=== PATIENT | male | born 1935 | race Caucasian/White ===

== ENCOUNTER 2016-11-09 08:07 | Day surgery (SDC) | payer OTHER, BC ==
[2016-11-09 08:39] VITALS: BMI 20.9
[2016-11-09] MEDS ORDERED: PROPOFOL 20 ML ONE (09:38)
[2016-11-09 10:13] VITALS: TEMP 97.4
[2016-11-09 10:36] VITALS: PULSE 58
[2016-11-09 13:12] VITALS: BP 134/70
--- NOTE | 2016-11-10 12:20 | PATH ---
Surgical Pathology Report Patient Name: CONCHIS HOWARD [facility]. Rec. #: [id number] /Age/Gender: 1935 (Age: 81) / M Account: [id number] Location: U-ENDOSCOPY Taken: 11/09/2016 Received: 11/09/2016 Reported: 11/10/2016 Physicians: Juan M Blancas D.O. Specimen(s) Received A: BX DUODENUM/LYMPHOGASTRIC B: BX BODY OF STOMACH C: BX ANTRUM & BODY D: BX GE JUNCTION Clinical History Weight loss, reflux Gastric erosions, hiatal hernia, gastritis Final Diagnosis A. DUODENUM, BIOPSY: DUODENAL MUCOSA WITH NO PATHOLOGIC CHANGES. NO HISTOLOGIC EVIDENCE OF GLUTEN SENSITIVE ENTEROPATHY (CELIAC SPRUE) IDENTIFIED. NO DEFINITE LYMPHANGIECTASIA IDENTIFIED. B. STOMACH, BODY, BIOPSY: HYPERPLASTIC FUNDIC GLAND POLYP. IMMUNOSTAIN FOR H. PYLORI IS NEGATIVE. C. STOMACH, ANTRUM AND BODY, BIOPSY: GASTRIC ANTRAL AND FUNDIC MUCOSA WITH NO DEFINITE PATHOLOGIC CHANGES. IMMUNOSTAIN FOR H. PYLORI IS NEGATIVE. D. 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 NO DYSPLASIA IDENTIFIED. Electronically Signed Kimani Mariano M.D. Gross Description A. Received in formalin, labeled "biopsy duodenum" are 2 de dios, irregular portions of soft tissue averaging 0.2 cm. in greatest dimension. The specimens are submitted in toto in one cassette. B. Received in formalin, labeled "biopsy polyp body of stomach" are 3 d edios, irregular portions of soft tissue ranging from 0.1-0.4 cm. in greatest dimension. The specimens are submitted in toto in one cassette. C. Received in formalin, labeled "biopsy antrum and body" are 2 de dios, irregular portions of soft tissue averaging 0.3 cm. in greatest dimension. The specimens are submitted in toto in one cassette. D. Received in formalin, labeled "biopsy GE junction" is a de dios, irregular portion of soft tissue measuring 0.4 cm. in greatest dimension. The specimen is submitted in toto in one cassette. 11/09/201611/09/2016
== END 2016-11-09 11:00 | disposition home or self-care (01) ==
LOC: JASU-ENDO 08:07
PROVIDERS: ATTEND Internal Medicine Gastroenterology
PROC: 0DB68ZX Excision of Stomach, Via Natural or Artificial Opening Endoscopic, Diagnostic (ICD-10-PCS; 2016-11-09)
PROC: 0DB48ZX Excision of Esophagogastric Junction, Via Natural or Artificial Opening Endoscopic, Diagnostic (ICD-10-PCS; 2016-11-09)
PROC: 0DB98ZX Excision of Duodenum, Via Natural or Artificial Opening Endoscopic, Diagnostic (ICD-10-PCS; principal; 2016-11-09 09:00)
DX: K25.9 Gastric ulcer, unspecified as acute or chronic, without hemorrhage or perforation (principal); K44.9 Diaphragmatic hernia without obstruction or gangrene; K31.7 Polyp of stomach and duodenum; I89.0 Lymphedema, not elsewhere classified
CPT/HCPCS: 88305-TC; 88342-TC

== ENCOUNTER 2016-11-23 07:58 | Day surgery (SDC) | payer OTHER, BC ==
[2016-11-22 12:06] VITALS: BMI 23.2
[2016-11-23] MEDS ORDERED: PROPOFOL 20 ML ONE ×2 (08:36)
[2016-11-23 09:32] VITALS: TEMP 97.8
[2016-11-23 10:45] VITALS: BP 118/58; PULSE 60
--- NOTE | 2016-11-24 11:54 | PATH ---
Surgical Pathology Report Patient Name: CONCHIS HOWARD [facility]. Rec. #: [id number] /Age/Gender: 1935 (Age: 81) / M Account: [id number] Location: [facility]-ENDOSCOPY Taken: 11/23/2016 Received: 11/23/2016 Reported: 11/24/2016 Physicians: Juan M Blancas D.O. Specimen(s) Received A: RECTOSIGMOID POLYP B: SIGMOID COLON POLYP Clinical History Screening, weight loss Diverticulosis, colon polyps Final Diagnosis A. COLON, RECTOSIGMOID, POLYP, POLYPECTOMY: HYPERPLASTIC TYPE POLYP WITH FOCAL FEATURES SUGGESTIVE OF SESSILE SERRATED ADENOMA. B. COLON SIGMOID, POLYP, POLYPECTOMY: TUBULOVILLOUS ADENOMA. Comment: The cauterized margin appears free of adenoma; however, the completeness of resection is best assessed endoscopically. Electronically Signed Jose Zayas M.D. Gross Description A. Received in formalin, labeled "rectosigmoid polyp" is a 0.5 x 0.4 x 0.3 cm pink-de dios, polypoid portion of soft tissue. The specimen is submitted in toto in one cassette. B. Received in formalin, labeled "sigmoid colon polyp" is a 1.0 x 0.7 x 0.5 cm pink-de dios, polypoid portion of soft tissue. The specimen is bisected and entirely submitted in one cassette. /11/23/201611/23/2016
== END 2016-11-23 10:45 | disposition home or self-care (01) ==
LOC: JASU-ENDO 07:58
PROVIDERS: ATTEND Internal Medicine Gastroenterology
PROC: 0DBP8ZX Excision of Rectum, Via Natural or Artificial Opening Endoscopic, Diagnostic (ICD-10-PCS; 2016-11-23)
PROC: 0DBN8ZX Excision of Sigmoid Colon, Via Natural or Artificial Opening Endoscopic, Diagnostic (ICD-10-PCS; principal; 2016-11-23 09:00)
DX: Z12.11 Encounter for screening for malignant neoplasm of colon (principal); D12.5 Benign neoplasm of sigmoid colon; K63.5 Polyp of colon; K57.30 Diverticulosis of large intestine without perforation or abscess without bleeding; K64.8 Other hemorrhoids
CPT/HCPCS: 88305-TC

== ENCOUNTER 2020-11-29 05:02 | Day surgery (SDC) | payer OTHER, BC ==
[2020-11-26 13:54] VITALS: BMI 19.3
[2020-11-29 12:03] LABS: BASO % 1.2 % (0-2.0); EOS % 1.3 % (0-4.5); HEMATOCRIT 33.3 % (35.4-49); HEMOGLOBIN 11.1 GM/dL (11.7-16.9); LYMPH % 8.5 % (8-40); MCH 31.1 pg (25.7-33.7); MCHC 33.4 g/dl (32.0-35.9); MEAN PLT VOLUME 8.8 fl (7.5-11.1); MONO % 10.6 % (3.8-10.2); NEUT % 78.4 % (42.8-82.8); PLATELET COUNT 143 K/MM3 (134-434); RBC 3.58 M/mm3 (4.00-5.60); RDW 17.5 % (11.9-15.9); WHITE BLOOD COUNT 4.2 K/mm3 (4.0-10.0)
[2020-11-29 12:11] LABS: INR 1.21 (0.83-1.09); PROTHROMBIN TIME (PATIENT) 14.8 SEC (9.7-13.0)
[2020-11-29 16:34] VITALS: BP 143/74; PULSE 70; TEMP 97.3
== END 2020-11-29 18:00 | disposition home or self-care (01) ==
LOC: JRADIR 05:02
PROVIDERS: ATTEND Specialist
PROC: 0BBJ3ZX Excision of Left Lower Lung Lobe, Percutaneous Approach, Diagnostic (ICD-10-PCS; principal; 2020-11-29)
DX: C34.32 Malignant neoplasm of lower lobe, left bronchus or lung (principal)
CPT/HCPCS: 32408; 36415; 71046-TC-FY; 85025; 85610

== ENCOUNTER 2021-04-11 20:29 | Inpatient (IN) | payer OTHER, BC ==
[2021-04-11 21:32] LABS: BASO % 0.9 % (0-2.0); EOS % 0.8 % (0-4.5); HEMATOCRIT 36.2 % (35.4-49); MCH 30.1 pg (25.7-33.7); MEAN CELL VOLUME 91.3 fl (80-96); MEAN PLT VOLUME 8.2 fl (7.5-11.1); MONO % 11.1 % (3.8-10.2); NEUT % 79.2 % (42.8-82.8); PLATELET COUNT 164 10^3/uL (134-434); RBC 3.97 M/mm3 (4.00-5.60); RDW 16.4 % (11.9-15.9); WHITE BLOOD COUNT 5.2 K/mm3 (4.0-10.0)
[2021-04-11 21:43] LABS: CHLORIDE 105 mmol/L (98-107); SODIUM 140 mmol/L (136-145)
[2021-04-11 21:45] LABS: CALCIUM 8.8 mg/dL (8.5-10.1)
[2021-04-11 21:46] LABS: ALBUMIN 3.2 g/dl (3.4-5.0); ANION GAP 4 MMOL/L (8-16); BLOOD UREA NITROGEN 19.2 mg/dL (7-18); CO2 31 mmol/L (21-32); GLUCOSE,RANDOM 99 mg/dL (74-106)
[2021-04-11 21:49] LABS: CREATININE 0.7 mg/dL (0.55-1.3); SGOT/AST 22 U/L (15-37); SGPT/ALT 23 U/L (13-61)
[2021-04-11 21:50] LABS: BILIRUBIN,TOTAL 0.3 mg/dL (0.2-1); TOT PROT 7.2 g/dl (6.4-8.2)
[2021-04-11 21:51] LABS: ALK PHOS 74 U/L (45-117)
[2021-04-12 02:52] LABS: OPIATES, URI NEGATIVE (NEGATIVE); URINE AMPHETAMINES NEGATIVE (NEGATIVE)
[2021-04-12 02:53] LABS: PHENCYCLIDINE,URINE NEGATIVE (NEGATIVE)
[2021-04-12 02:54] LABS: COCAINE, UR NEGATIVE (NEGATIVE); METHADONE, UR NEGATIVE (NEGATIVE); URINE BARBITURATES NEGATIVE (NEGATIVE); URINE BENZODIAZEPINES POSITIVE (NEGATIVE)
[2021-04-12 03:03] LABS: URINE APPEARANCE Clear; URINE BILIRUBIN Negative (NEGATIVE); URINE COLOR Yellow; URINE GLUCOSE (UA) Negative (NEGATIVE); URINE KETONE Negative (NEGATIVE); URINE LEUK ESTERASE Negative (NEGATIVE); URINE NITRITE Negative (NEGATIVE); URINE PROTEIN Negative (NEGATIVE); URINE UROBILINOGEN 0.2 mg/dL (0.2-1.0)
[2021-04-12 06:12] LABS: CALCIUM 8.4 mg/dL (8.5-10.1)
[2021-04-12 06:13] LABS: ALBUMIN 2.8 g/dl (3.4-5.0); BLOOD UREA NITROGEN 14.4 mg/dL (7-18)
[2021-04-12 06:16] LABS: PHOSPHOROUS 3.1 mg/dL (2.5-4.9)
[2021-04-12 06:17] LABS: BILIRUBIN,TOTAL 0.9 mg/dL (0.2-1); TOT PROT 6.3 g/dl (6.4-8.2)
[2021-04-12 06:28] LABS: CREATININE 0.5 mg/dL (0.55-1.3)
[2021-04-12 07:09] LABS: BASO % 1.3 % (0-2.0); EOS % 1.1 % (0-4.5); HEMATOCRIT 34.6 % (35.4-49); HEMOGLOBIN 11.6 GM/dL (11.7-16.9); LYMPH % 10.5 % (8-40); MCH 30.4 pg (25.7-33.7); MCHC 33.4 g/dl (32.0-35.9); MEAN CELL VOLUME 90.9 fl (80-96); MEAN PLT VOLUME 8.9 fl (7.5-11.1); MONO % 10.7 % (3.8-10.2); NEUT % 76.4 % (42.8-82.8); PLATELET COUNT 156 10^3/uL (134-434); RDW 16.3 % (11.9-15.9); WHITE BLOOD COUNT 4.2 K/mm3 (4.0-10.0)
[2021-04-12] MEDS: ENOXAPARIN NA (PORCINE) 40 MG/0.4 ML DISP.SYRIN SQ SCH (10:57)
[2021-04-12 12:13] VITALS: BMI 17.9
[2021-04-12] MEDS: LORazepam 0.5 MG TABLET PO PRN (21:04)
[2021-04-13] MEDS ORDERED: ACETAMINOPHEN 325 MG TABLET (FP) PO ONE (06:34)
[2021-04-13 07:33] LABS: BASO % 0.7 % (0-2.0); EOS % 0.3 % (0-4.5); HEMATOCRIT 35.6 % (35.4-49); HEMOGLOBIN 12.1 GM/dL (11.7-16.9); LYMPH % 5.9 % (8-40); MCH 30.8 pg (25.7-33.7); MCHC 33.9 g/dl (32.0-35.9); MEAN CELL VOLUME 90.7 fl (80-96); MEAN PLT VOLUME 8.7 fl (7.5-11.1); MONO % 5.8 % (3.8-10.2); NEUT % 87.3 % (42.8-82.8); PLATELET COUNT 155 10^3/uL (134-434); RBC 3.92 M/mm3 (4.00-5.60); RDW 16.1 % (11.9-15.9); WHITE BLOOD COUNT 5.8 K/mm3 (4.0-10.0)
[2021-04-13 07:56] LABS: ALBUMIN 2.9 g/dl (3.4-5.0); BLOOD UREA NITROGEN 12.3 mg/dL (7-18); CALCIUM 8.6 mg/dL (8.5-10.1)
[2021-04-13 07:59] LABS: CREATININE 0.5 mg/dL (0.55-1.3); PHOSPHOROUS 2.9 mg/dL (2.5-4.9)
[2021-04-13 08:00] LABS: BILIRUBIN,TOTAL 0.9 mg/dL (0.2-1); TOT PROT 6.7 g/dl (6.4-8.2)
[2021-04-13] MEDS: ENOXAPARIN NA (PORCINE) 40 MG/0.4 ML DISP.SYRIN SQ SCH (10:00)
[2021-04-13] MEDS: LORazepam 0.5 MG TABLET PO PRN ×2 (10:04→21:32)
[2021-04-14 07:35] LABS: BASO % 1.2 % (0-2.0); EOS % 0.4 % (0-4.5); HEMOGLOBIN 11.9 GM/dL (11.7-16.9); LYMPH % 8.9 % (8-40); MCH 30.7 pg (25.7-33.7); MCHC 34.1 g/dl (32.0-35.9); MEAN CELL VOLUME 89.9 fl (80-96); MEAN PLT VOLUME 8.6 fl (7.5-11.1); MONO % 12.5 % (3.8-10.2); PLATELET COUNT 148 10^3/uL (134-434); RBC 3.89 M/mm3 (4.00-5.60); RDW 16.1 % (11.9-15.9); WHITE BLOOD COUNT 4.3 K/mm3 (4.0-10.0)
[2021-04-14 07:55] LABS: ALBUMIN 2.8 g/dl (3.4-5.0); BLOOD UREA NITROGEN 17.8 mg/dL (7-18); CALCIUM 8.7 mg/dL (8.5-10.1); MAGNESIUM 1.9 mg/dL (1.8-2.4)
[2021-04-14 07:58] LABS: CREATININE 0.6 mg/dL (0.55-1.3)
[2021-04-14 08:00] LABS: BILIRUBIN,TOTAL 0.4 mg/dL (0.2-1); TOT PROT 6.6 g/dl (6.4-8.2)
[2021-04-14] MEDS: ENOXAPARIN NA (PORCINE) 40 MG/0.4 ML DISP.SYRIN SQ SCH (09:50)
[2021-04-14 10:01] VITALS: TEMP 97.5
[2021-04-14] MEDS: LORazepam 0.5 MG TABLET PO PRN (13:35)
[2021-04-14 13:47] VITALS: BP 123/61; PULSE 84
== END 2021-04-14 18:54 | disposition home health service (06) | DRG 884 ==
LOC: JER 20:29 → JERBED 04-12 00:44 → J4W 04-12 10:17
PROVIDERS: ADMIT Internal Medicine; ATTEND Internal Medicine
DX: F03.90 Unspecified dementia, unspecified severity, without behavioral disturbance, psychotic disturbance, mood disturbance, and anxiety (principal); E43 Unspecified severe protein-calorie malnutrition; G45.9 Transient cerebral ischemic attack, unspecified; Z68.1 Body mass index [BMI] 19.9 or less, adult; C34.90 Malignant neoplasm of unspecified part of unspecified bronchus or lung; F41.9 Anxiety disorder, unspecified; R63.4 Abnormal weight loss; J44.9 Chronic obstructive pulmonary disease, unspecified; R41.89 Other symptoms and signs involving cognitive functions and awareness; R91.1 Solitary pulmonary nodule; I25.10 Atherosclerotic heart disease of native coronary artery without angina pectoris; Z85.828 Personal history of other malignant neoplasm of skin; Z88.0 Allergy status to penicillin
CPT/HCPCS: 36415; 70450-TC; 70551-TC; 71046-TC-FY; 80053; 80307; 81003; 82140; 82550; 82607; 83735; 84100; 84436; 84443; 84484; 85025; 86780; 93005; 93010; 93306-TC; 93880-TC; 97116-GP; 99285-25; C9803; U0003; U0005

== ENCOUNTER 2021-06-15 04:43 | Inpatient (IN) | payer OTHER, BC ==
[2021-06-15 06:25] LABS: CHLORIDE 108 mmol/L (98-107); SODIUM 142 mmol/L (136-145)
[2021-06-15 06:27] LABS: CALCIUM 8.2 mg/dL (8.5-10.1)
[2021-06-15 06:28] LABS: ALBUMIN 2.4 g/dl (3.4-5.0); ANION GAP 3 MMOL/L (8-16); BLOOD UREA NITROGEN 18.5 mg/dL (7-18); CO2 31 mmol/L (21-32); GLUCOSE,RANDOM 103 mg/dL (74-106)
[2021-06-15 06:31] LABS: CREATININE 0.7 mg/dL (0.55-1.3); SGOT/AST 39 U/L (15-37); SGPT/ALT 48 U/L (13-61)
[2021-06-15 06:32] LABS: BILIRUBIN,TOTAL 0.3 mg/dL (0.2-1); TOT PROT 6.5 g/dl (6.4-8.2)
[2021-06-15 06:34] LABS: ALK PHOS 66 U/L (45-117)
[2021-06-15 06:36] LABS: INR 1.3 (0.83-1.09); N-TERMINAL BNP 784.6 pg/ml (5-450); PROTHROMBIN TIME (PATIENT) 15.6 SEC (9.7-13.0)
[2021-06-15 06:38] LABS: ACTIVATED PTT 26.4 SECONDS (25.2-36.5); BASO % 0.6 % (0-2.0); EOS % 0.5 % (0-4.5); HEMATOCRIT 31.3 % (35.4-49); HEMOGLOBIN 10.6 GM/dL (11.7-16.9); LYMPH % 3.4 % (8-40); MCH 30.4 pg (25.7-33.7); MCHC 33.8 g/dl (32.0-35.9); MEAN CELL VOLUME 89.9 fl (80-96); MEAN PLT VOLUME 8.2 fl (7.5-11.1); MONO % 10.4 % (3.8-10.2); NEUT % 85.1 % (42.8-82.8); PLATELET COUNT 224 10^3/uL (134-434); RBC 3.49 M/mm3 (4.00-5.60); RDW 16.6 % (11.9-15.9); WHITE BLOOD COUNT 7.5 K/mm3 (4.0-10.0)
[2021-06-15] MEDS ORDERED: AZITHROMYCIN IVPB 500 MG in DEXTROSE 5%-WATER - 250 ML IVPB ONE (09:21)
[2021-06-15] MEDS ORDERED: CEFTRIAXONE 1,000 MG in DEXTROSE 5%-WATER - 50 ML IVPB ONE (09:21)
[2021-06-15] MEDS ORDERED: AZITHROMYCIN IVPB 500 MG/250 ML BAG IVPB ONE (09:32)
[2021-06-15] MEDS ORDERED: CEFTRIAXONE 1 GM/50 ML BAG ONE (09:32)
[2021-06-15] MEDS ORDERED: ALPRAZOLAM 0.5 MG PO SCH (10:30)
[2021-06-15] MEDS: ALBUTEROL SO4 2.5/IPRATROPIUM 0.5 INH SOL 3 ML VIAL.NEB. NEB SCH ×3 (12:25→20:55)
[2021-06-15] MEDS ORDERED: predniSONE 10 MG TABLET (UD) PO SCH (12:30)
[2021-06-15 15:06] LABS: PHOSPHOROUS 3.5 mg/dL (2.5-4.9)
[2021-06-15] MEDS: ENOXAPARIN NA (PORCINE) 40 MG/0.4 ML DISP.SYRIN SQ SCH (16:07)
[2021-06-15] MEDS: BUDESONIDE/FORMETEROL FUMARATE 80/4.5 mcg INHALER IH SCH ×2 (16:08→21:27)
[2021-06-15] MEDS: BACITRACIN 15 GM TUBE TOPICAL OINTMENT TP SCH (16:09)
[2021-06-15] MEDS: CLOPIDOGREL BISULFATE 75 MG TABLET (FP) PO SCH (16:09)
[2021-06-15] MEDS ORDERED: methylPREDNISolone NA SUCC 40 MG/1 ML VIAL IVPUSH SCH (18:00)
[2021-06-15] MEDS: methylPREDNISolone NA SUCC 40 MG/1 ML VIAL IVPUSH SCH (19:26)
[2021-06-16] MEDS: methylPREDNISolone NA SUCC 40 MG/1 ML VIAL IVPUSH SCH ×3 (02:07→17:14)
[2021-06-16 07:32] LABS: HEMATOCRIT 30.8 % (35.4-49); HEMOGLOBIN 10.4 GM/dL (11.7-16.9); MCHC 33.6 g/dl (32.0-35.9); MEAN CELL VOLUME 89.3 fl (80-96); MEAN PLT VOLUME 7.9 fl (7.5-11.1); PLATELET COUNT 243 10^3/uL (134-434); RBC 3.45 M/mm3 (4.00-5.60); RDW 17.2 % (11.9-15.9); WHITE BLOOD COUNT 3.7 K/mm3 (4.0-10.0)
[2021-06-16] MEDS: ALBUTEROL SO4 2.5/IPRATROPIUM 0.5 INH SOL 3 ML VIAL.NEB. NEB SCH ×4 (07:34→20:45)
[2021-06-16 07:52] LABS: ALBUMIN 2.2 g/dl (3.4-5.0); BLOOD UREA NITROGEN 17.5 mg/dL (7-18); CALCIUM 8.8 mg/dL (8.5-10.1); MAGNESIUM 2.4 mg/dL (1.8-2.4)
[2021-06-16 07:55] LABS: CREATININE 0.7 mg/dL (0.55-1.3); PHOSPHOROUS 3.4 mg/dL (2.5-4.9)
[2021-06-16 07:57] LABS: BILIRUBIN,TOTAL 0.2 mg/dL (0.2-1); TOT PROT 6.3 g/dl (6.4-8.2)
[2021-06-16] MEDS: AZITHROMYCIN IVPB 250 MG in DEXTROSE 5%-WATER - 250 ML IVPB SCH (09:27)
[2021-06-16] MEDS: ENOXAPARIN NA (PORCINE) 40 MG/0.4 ML DISP.SYRIN SQ SCH (09:27)
[2021-06-16] MEDS: CLOPIDOGREL BISULFATE 75 MG TABLET (FP) PO SCH (09:27)
[2021-06-16] MEDS: BUDESONIDE/FORMETEROL FUMARATE 80/4.5 mcg INHALER IH SCH ×2 (09:28→21:31)
[2021-06-16] MEDS: BACITRACIN 15 GM TUBE TOPICAL OINTMENT TP SCH (09:39)
[2021-06-16] MEDS ORDERED: DEXTROSE 5%-WATER - 50 ML IVPB ONE (09:44)
[2021-06-16] MEDS ORDERED: cefTRIAXone SODIUM 1 GM VIAL ONE (09:44)
[2021-06-16] MEDS: ALPRAZolam 0.25 MG TABLET PO PRN (09:46)
[2021-06-16] MEDS: CEFTRIAXONE 1 GM in DEXTROSE 5%-WATER - 50 ML IVPB SCH (11:18)
[2021-06-16 16:21] VITALS: BMI 17.0
[2021-06-17] MEDS: methylPREDNISolone NA SUCC 40 MG/1 ML VIAL IVPUSH SCH (01:06)
[2021-06-17] MEDS: ALPRAZolam 0.25 MG TABLET PO PRN ×3 (01:08→22:42)
[2021-06-17] MEDS: ALBUTEROL SO4 2.5/IPRATROPIUM 0.5 INH SOL 3 ML VIAL.NEB. NEB SCH ×4 (07:38→20:20)
[2021-06-17] MEDS ORDERED: cefTRIAXone SODIUM 1 GM VIAL ONE (09:01)
[2021-06-17] MEDS ORDERED: DEXTROSE 5%-WATER - 50 ML IVPB ONE (09:01)
[2021-06-17] MEDS: CEFTRIAXONE 1 GM in DEXTROSE 5%-WATER - 50 ML IVPB SCH (09:16)
[2021-06-17] MEDS: ENOXAPARIN NA (PORCINE) 40 MG/0.4 ML DISP.SYRIN SQ SCH (09:16)
[2021-06-17] MEDS: CLOPIDOGREL BISULFATE 75 MG TABLET (FP) PO SCH (09:17)
[2021-06-17] MEDS: MULTIVITAMINS (DAILY MVI) TABLET (FP) PO SCH (09:17)
[2021-06-17] MEDS: BACITRACIN 15 GM TUBE TOPICAL OINTMENT TP SCH (09:17)
[2021-06-17] MEDS: BUDESONIDE/FORMETEROL FUMARATE 80/4.5 mcg INHALER IH SCH ×2 (09:17→22:13)
[2021-06-17] MEDS: AZITHROMYCIN IVPB 250 MG in DEXTROSE 5%-WATER - 250 ML IVPB SCH (09:22)
[2021-06-17] MEDS ORDERED: MULTIVITAMINS (DAILY MVI) TABLET (FP) PO SCH (10:00)
[2021-06-18] MEDS: ALBUTEROL SO4 2.5/IPRATROPIUM 0.5 INH SOL 3 ML VIAL.NEB. NEB SCH ×5 (07:47→20:55)
[2021-06-18] MEDS ORDERED: cefTRIAXone SODIUM 1 GM VIAL ONE (08:28)
[2021-06-18] MEDS ORDERED: DEXTROSE 5%-WATER - 50 ML IVPB ONE (08:29)
[2021-06-18 09:59] LABS: HEMATOCRIT 33.5 % (35.4-49); HEMOGLOBIN 11.4 GM/dL (11.7-16.9); MCH 30.6 pg (25.7-33.7); MCHC 33.9 g/dl (32.0-35.9); MEAN CELL VOLUME 90.3 fl (80-96); MEAN PLT VOLUME 7.8 fl (7.5-11.1); PLATELET COUNT 312 10^3/uL (134-434); RBC 3.71 M/mm3 (4.00-5.60); RDW 16.8 % (11.9-15.9); WHITE BLOOD COUNT 10.6 K/mm3 (4.0-10.0)
[2021-06-18] MEDS: BACITRACIN 15 GM TUBE TOPICAL OINTMENT TP SCH (10:11)
[2021-06-18] MEDS: MULTIVITAMINS (DAILY MVI) TABLET (FP) PO SCH (10:11)
[2021-06-18] MEDS: BUDESONIDE/FORMETEROL FUMARATE 80/4.5 mcg INHALER IH SCH ×2 (10:11→21:25)
[2021-06-18] MEDS: CEFTRIAXONE 1 GM in DEXTROSE 5%-WATER - 50 ML IVPB SCH (10:12)
[2021-06-18] MEDS: CLOPIDOGREL BISULFATE 75 MG TABLET (FP) PO SCH (10:12)
[2021-06-18] MEDS: ENOXAPARIN NA (PORCINE) 40 MG/0.4 ML DISP.SYRIN SQ SCH (10:12)
[2021-06-18 10:26] LABS: CALCIUM 8.9 mg/dL (8.5-10.1)
[2021-06-18 10:27] LABS: BLOOD UREA NITROGEN 24.4 mg/dL (7-18)
[2021-06-18 10:30] LABS: CREATININE 0.7 mg/dL (0.55-1.3)
[2021-06-18] MEDS: AZITHROMYCIN IVPB 250 MG in DEXTROSE 5%-WATER - 250 ML IVPB SCH (10:54)
[2021-06-18] MEDS ORDERED: ALPRAZolam 0.25 MG TABLET PO PRN ×2 (19:28→19:29)
[2021-06-19] MEDS: ALBUTEROL SO4 2.5/IPRATROPIUM 0.5 INH SOL 3 ML VIAL.NEB. NEB SCH ×4 (07:35→20:34)
[2021-06-19] MEDS ORDERED: DEXTROSE 5%-WATER - 50 ML IVPB ONE (09:19)
[2021-06-19] MEDS ORDERED: cefTRIAXone SODIUM 1 GM VIAL ONE (09:19)
[2021-06-19] MEDS ORDERED: PT OWN MED DRAWER 7, Y5N ONE (09:19)
[2021-06-19] MEDS: ENOXAPARIN NA (PORCINE) 40 MG/0.4 ML DISP.SYRIN SQ SCH (09:33)
[2021-06-19] MEDS: CLOPIDOGREL BISULFATE 75 MG TABLET (FP) PO SCH (09:33)
[2021-06-19] MEDS: BACITRACIN 15 GM TUBE TOPICAL OINTMENT TP SCH (09:33)
[2021-06-19] MEDS: BUDESONIDE/FORMETEROL FUMARATE 80/4.5 mcg INHALER IH SCH ×2 (09:33→21:47)
[2021-06-19] MEDS: MULTIVITAMINS (DAILY MVI) TABLET (FP) PO SCH (09:33)
[2021-06-19] MEDS: CEFTRIAXONE 1 GM in DEXTROSE 5%-WATER - 50 ML IVPB SCH (09:33)
[2021-06-19] MEDS: AZITHROMYCIN IVPB 250 MG in DEXTROSE 5%-WATER - 250 ML IVPB SCH (11:55)
[2021-06-20] MEDS: ALBUTEROL SO4 2.5/IPRATROPIUM 0.5 INH SOL 3 ML VIAL.NEB. NEB SCH (07:45)
[2021-06-20] MEDS ORDERED: cefTRIAXone SODIUM 1 GM VIAL ONE (08:52)
[2021-06-20] MEDS ORDERED: DEXTROSE 5%-WATER - 50 ML IVPB ONE (08:52)
[2021-06-20] MEDS: MULTIVITAMINS (DAILY MVI) TABLET (FP) PO SCH (10:10)
[2021-06-20] MEDS: CEFTRIAXONE 1 GM in DEXTROSE 5%-WATER - 50 ML IVPB SCH (10:10)
[2021-06-20] MEDS: CLOPIDOGREL BISULFATE 75 MG TABLET (FP) PO SCH (10:10)
[2021-06-20] MEDS: BUDESONIDE/FORMETEROL FUMARATE 80/4.5 mcg INHALER IH SCH ×2 (10:10→22:16)
[2021-06-20] MEDS: ENOXAPARIN NA (PORCINE) 40 MG/0.4 ML DISP.SYRIN SQ SCH (10:10)
[2021-06-20] MEDS: BACITRACIN 15 GM TUBE TOPICAL OINTMENT TP SCH (10:10)
[2021-06-20] MEDS: AZITHROMYCIN IVPB 250 MG in DEXTROSE 5%-WATER - 250 ML IVPB SCH (11:04)
[2021-06-21] MEDS: BUDESONIDE/FORMETEROL FUMARATE 80/4.5 mcg INHALER IH SCH ×2 (09:21→21:20)
[2021-06-21] MEDS: BACITRACIN 15 GM TUBE TOPICAL OINTMENT TP SCH (09:21)
[2021-06-21] MEDS: ENOXAPARIN NA (PORCINE) 40 MG/0.4 ML DISP.SYRIN SQ SCH (09:21)
[2021-06-21] MEDS: CLOPIDOGREL BISULFATE 75 MG TABLET (FP) PO SCH (09:21)
[2021-06-21] MEDS: MULTIVITAMINS (DAILY MVI) TABLET (FP) PO SCH (09:21)
[2021-06-21] MEDS ORDERED: POLYETHYLENE GLYCOL 3350 119 GM BTL PO SCH (15:35)
[2021-06-21] MEDS: POLYETHYLENE GLYCOL (HEALTHYLAX) 3350 17 GM PACKET PO SCH ×2 (16:35→21:20)
[2021-06-21] MEDS ORDERED: ALPRAZolam 0.25 MG TABLET PO ONE (21:39)
[2021-06-22] MEDS: POLYETHYLENE GLYCOL (HEALTHYLAX) 3350 17 GM PACKET PO SCH ×2 (12:16→21:25)
[2021-06-22] MEDS: CLOPIDOGREL BISULFATE 75 MG TABLET (FP) PO SCH (12:16)
[2021-06-22] MEDS: MULTIVITAMINS (DAILY MVI) TABLET (FP) PO SCH (12:16)
[2021-06-22] MEDS: ENOXAPARIN NA (PORCINE) 40 MG/0.4 ML DISP.SYRIN SQ SCH (12:17)
[2021-06-22] MEDS: BACITRACIN 15 GM TUBE TOPICAL OINTMENT TP SCH (12:17)
[2021-06-22] MEDS: BUDESONIDE/FORMETEROL FUMARATE 80/4.5 mcg INHALER IH SCH ×2 (13:32→21:25)
[2021-06-22] MEDS ORDERED: ALBUTEROL SO4 0.083% IH SOL 2.5 MG/3 ML VIAL.NEB. NEB PRN (13:56)
[2021-06-23] MEDS ORDERED: guaiFENesin/CODEINE 10 ML UNIT-DOSE CUPS PO ONE (00:32)
[2021-06-23 06:32] VITALS: BP 121/74; PULSE 80; TEMP 98.4
[2021-06-23] MEDS: MULTIVITAMINS (DAILY MVI) TABLET (FP) PO SCH (09:52)
[2021-06-23] MEDS: POLYETHYLENE GLYCOL (HEALTHYLAX) 3350 17 GM PACKET PO SCH (09:52)
[2021-06-23] MEDS: ENOXAPARIN NA (PORCINE) 40 MG/0.4 ML DISP.SYRIN SQ SCH (09:52)
[2021-06-23] MEDS: CLOPIDOGREL BISULFATE 75 MG TABLET (FP) PO SCH (09:52)
[2021-06-23] MEDS: BACITRACIN 15 GM TUBE TOPICAL OINTMENT TP SCH (09:52)
[2021-06-23] MEDS: BUDESONIDE/FORMETEROL FUMARATE 80/4.5 mcg INHALER IH SCH (09:53)
== END 2021-06-23 12:09 | disposition hospice, home (50) | DRG 180 ==
LOC: JER 04:43 → JERBED 09:46 → J7W 11:19
PROVIDERS: ADMIT Internal Medicine
DX: C34.92 Malignant neoplasm of unspecified part of left bronchus or lung (principal); J18.9 Pneumonia, unspecified organism; E43 Unspecified severe protein-calorie malnutrition; J96.01 Acute respiratory failure with hypoxia; C79.89 Secondary malignant neoplasm of other specified sites; J44.1 Chronic obstructive pulmonary disease with (acute) exacerbation; Z68.1 Body mass index [BMI] 19.9 or less, adult; R64 Cachexia; J98.11 Atelectasis; J44.9 Chronic obstructive pulmonary disease, unspecified; F41.9 Anxiety disorder, unspecified; I65.29 Occlusion and stenosis of unspecified carotid artery; R62.7 Adult failure to thrive; Z66 Do not resuscitate; E78.5 Hyperlipidemia, unspecified; I10 Essential (primary) hypertension; Z85.828 Personal history of other malignant neoplasm of skin; Z99.81 Dependence on supplemental oxygen; Z86.73 Personal history of transient ischemic attack (TIA), and cerebral infarction without residual deficits
CPT/HCPCS: 36415; 70450-TC; 71275-TC; 80048; 80053; 82550; 82728; 83540; 83550; 83605; 83735; 83880; 84100; 84466; 84484; 85025; 85027; 85610; 85730; 87070; 87186; 87205; 93005; 93010; 94640; 97116-GP; 97161-GP; 99285-25; C9803; Q9967; U0003; U0005

== ENCOUNTER 2021-06-24 17:21 | Inpatient (IN) | payer OTHER, BC ==
[2021-06-24] MEDS ORDERED: DIPHTH,PERTUSS(ACELL),TET 0.5 ML DISP.SYRIN IM ONE ×4 (18:10→18:34)
[2021-06-24] MEDS ORDERED: ACETAMINOPHEN 500 MG TABLET (FP) PO ONE (18:10)
[2021-06-24] MEDS ORDERED: ACETAMINOPHEN 325 MG TABLET (FP) ONE (18:27)
[2021-06-24] MEDS ORDERED: ALPRAZolam 1 MG TABLET PO PRN (18:58)
[2021-06-24 21:24] LABS: HEMATOCRIT 30.6 % (35.4-49); HEMOGLOBIN 10.2 GM/dL (11.7-16.9); MCH 29.7 pg (25.7-33.7); MCHC 33.4 g/dl (32.0-35.9); MEAN CELL VOLUME 88.8 fl (80-96); MEAN PLT VOLUME 8.1 fl (7.5-11.1); PLATELET COUNT 205 10^3/uL (134-434); RBC 3.45 M/mm3 (4.00-5.60); WHITE BLOOD COUNT 12.5 K/mm3 (4.0-10.0)
[2021-06-24 21:37] LABS: INR 1.16 (0.83-1.09)
[2021-06-24 21:40] LABS: ACTIVATED PTT 19.7 SECONDS (25.2-36.5)
[2021-06-24 21:42] LABS: CALCIUM 8.8 mg/dL (8.5-10.1)
[2021-06-24 21:43] LABS: ALBUMIN 2.4 g/dl (3.4-5.0); BLOOD UREA NITROGEN 26.8 mg/dL (7-18)
[2021-06-24 21:46] LABS: CREATININE 0.6 mg/dL (0.55-1.3)
[2021-06-24 21:48] LABS: BILIRUBIN,TOTAL 0.8 mg/dL (0.2-1); TOT PROT 6.2 g/dl (6.4-8.2)
[2021-06-24 22:47] LABS: ANISOCYTOSIS 1+; MACROCYTOSIS 1+; PLATELET ESTIMATE NORMAL
[2021-06-25] MEDS ORDERED: morphine SULFATE 4 MG/ML VIAL IVPUSH PRN (00:01)
[2021-06-25] MEDS ORDERED: MORPHINE SULFATE 2 MG/ML VIAL IVPUSH PRN (00:01)
[2021-06-25] MEDS ORDERED: ONDANSETRON 4 MG/2 ML VIAL IVPUSH PRN (00:04)
[2021-06-25] MEDS ORDERED: ACETAMINOPHEN 1000 MG/100 ML VIAL (NON FORMULARY) IVPB PRN (01:03)
[2021-06-25 01:20] LABS: PH,URINE 5.5 (5.0-8.0); URINE APPEARANCE CLEAR; URINE BILIRUBIN NEGATIVE (NEGATIVE); URINE COLOR YELLOW; URINE GLUCOSE (UA) NEGATIVE (NEGATIVE); URINE KETONE NEGATIVE (NEGATIVE); URINE LEUK ESTERASE NEGATIVE (NEGATIVE); URINE NITRITE NEGATIVE (NEGATIVE); URINE PROTEIN TRACE (NEGATIVE); URINE UROBILINOGEN 0.2 mg/dL (0.2-1.0)
[2021-06-25] MEDS: LACTATED RINGERS SOLUTION 1,000 ML IV SCH (02:36)
[2021-06-25] MEDS ORDERED: ALPRAZolam 0.25 MG TABLET PO PRN (05:32)
[2021-06-25] MEDS: BUDESONIDE/FORMETEROL FUMARATE 80/4.5 mcg INHALER IH SCH ×2 (11:22→21:38)
[2021-06-26] MEDS: LACTATED RINGERS SOLUTION 1,000 ML IV SCH ×2 (02:37→15:40)
[2021-06-26 09:22] LABS: HEMATOCRIT 26.4 % (35.4-49); MCH 30.4 pg (25.7-33.7); MCHC 34.2 g/dl (32.0-35.9); MEAN CELL VOLUME 88.7 fl (80-96); MEAN PLT VOLUME 8.2 fl (7.5-11.1); PLATELET COUNT 133 10^3/uL (134-434); RBC 2.98 M/mm3 (4.00-5.60); RDW 16.8 % (11.9-15.9)
[2021-06-26 09:45] LABS: BLOOD UREA NITROGEN 12.4 mg/dL (7-18); CALCIUM 8.1 mg/dL (8.5-10.1)
[2021-06-26 09:46] LABS: MAGNESIUM 1.7 mg/dL (1.8-2.4)
[2021-06-26 09:49] LABS: CREATININE 0.4 mg/dL (0.55-1.3); PHOSPHOROUS 2.2 mg/dL (2.5-4.9)
[2021-06-26 09:50] LABS: BILIRUBIN,TOTAL 0.7 mg/dL (0.2-1)
[2021-06-26 10:02] LABS: ALBUMIN 1.9 g/dl (3.4-5.0)
[2021-06-26 10:42] LABS: ANISOCYTOSIS 0; MACROCYTOSIS 0; PLATELET ESTIMATE DECREASED
[2021-06-26] MEDS: BUDESONIDE/FORMETEROL FUMARATE 80/4.5 mcg INHALER IH SCH ×2 (11:33→21:08)
[2021-06-26] MEDS ORDERED: PROPOFOL 20 ML ONE (12:20)
[2021-06-26] MEDS ORDERED: SUCCINYLCHOLINE CHLORIDE 200 MG/10 ML SYRINGE ONE (12:20)
[2021-06-26] MEDS ORDERED: LIDOCAINE HCL/PF 2% SDV 5ML VIAL ONE (12:20)
[2021-06-26] MEDS ORDERED: oxyCODONE HCL 5 MG TABLET PO PRN ×3 (12:50→14:53)
[2021-06-26] MEDS ORDERED: MORPHINE SULFATE 2 MG/ML VIAL IVPUSH PRN ×2 (12:58→14:53)
[2021-06-26] MEDS ORDERED: morphine SULFATE 4 MG/ML VIAL IVPUSH PRN ×2 (12:58→14:53)
[2021-06-26] MEDS ORDERED: ONDANSETRON 4 MG/2 ML VIAL IVPUSH PRN ×3 (12:58→14:53)
[2021-06-26] MEDS ORDERED: ALPRAZolam 0.25 MG TABLET PO PRN (12:58)
[2021-06-26] MEDS ORDERED: LACTATED RINGERS SOLUTION 1,000 ML IV SCH ×2 (13:00)
[2021-06-26] MEDS ORDERED: CLINDAMYCIN PHOSPHATE 600 MG/4 ML VIAL ONE (13:34)
[2021-06-26] MEDS ORDERED: CLINDAMYCIN 600 MG PREMIX BAG IVPB ONE (13:35)
[2021-06-26] MEDS ORDERED: PROMETHAZINE HCL 25 MG/1 ML VIAL IVPUSH PRN (14:53)
[2021-06-26] MEDS: CLINDAMYCIN 600MG PREMIX IVPB 600 MG/50 ML BAG IVPB SCH (20:25)
[2021-06-26] MEDS ORDERED: CLINDAMYCIN 600MG PREMIX IVPB 600 MG/50 ML BAG IVPB SCH (21:00)
[2021-06-26] MEDS ORDERED: CEFAZOLIN 2 GM in DEXTROSE 5%-WATER - 50 ML IVPB SCH (21:00)
[2021-06-26] MEDS ORDERED: BUDESONIDE/FORMETEROL FUMARATE 80/4.5 mcg INHALER IH SCH (22:00)
[2021-06-27] MEDS: CLINDAMYCIN 600MG PREMIX IVPB 600 MG/50 ML BAG IVPB SCH (04:25)
[2021-06-27] MEDS: LACTATED RINGERS SOLUTION 1,000 ML IV SCH ×3 (05:51→19:58)
[2021-06-27 09:12] LABS: HEMATOCRIT 23.9 % (35.4-49); HEMOGLOBIN 8.1 GM/dL (11.7-16.9); MCH 30.5 pg (25.7-33.7); MEAN CELL VOLUME 89.6 fl (80-96); MEAN PLT VOLUME 8.8 fl (7.5-11.1); PLATELET COUNT 110 10^3/uL (134-434); RBC 2.66 M/mm3 (4.00-5.60); RDW 16.7 % (11.9-15.9); WHITE BLOOD COUNT 9.9 K/mm3 (4.0-10.0)
[2021-06-27 09:30] LABS: CALCIUM 7.9 mg/dL (8.5-10.1)
[2021-06-27 09:31] LABS: BLOOD UREA NITROGEN 15.2 mg/dL (7-18)
[2021-06-27 09:34] LABS: CREATININE 0.5 mg/dL (0.55-1.3)
[2021-06-27] MEDS: BUDESONIDE/FORMETEROL FUMARATE 80/4.5 mcg INHALER IH SCH ×2 (09:42→20:59)
[2021-06-27] MEDS: ENOXAPARIN NA (PORCINE) 40 MG/0.4 ML DISP.SYRIN SQ SCH (09:44)
[2021-06-27] MEDS ORDERED: ENOXAPARIN NA (PORCINE) 40 MG/0.4 ML DISP.SYRIN SQ SCH ×2 (10:00)
[2021-06-27] MEDS ORDERED: oxyCODONE HCL 5 MG TABLET PO PRN (11:38)
[2021-06-27 13:40] VITALS: BMI 17.4
[2021-06-27] MEDS: AMINO ACIDS/PROTEIN HYDROLYS 30 ML LIQUID.PKT PO SCH (16:57)
[2021-06-28] MEDS: ENOXAPARIN NA (PORCINE) 40 MG/0.4 ML DISP.SYRIN SQ SCH (10:13)
[2021-06-28] MEDS: AMINO ACIDS/PROTEIN HYDROLYS 30 ML LIQUID.PKT PO SCH ×2 (10:14→18:14)
[2021-06-28] MEDS: BUDESONIDE/FORMETEROL FUMARATE 80/4.5 mcg INHALER IH SCH ×2 (10:18→21:03)
[2021-06-28] MEDS ORDERED: oxyCODONE HCL 5 MG TABLET PO PRN (10:36)
[2021-06-28 11:25] LABS: HEMATOCRIT 23.1 % (35.4-49); MCH 30.5 pg (25.7-33.7); MCHC 34.5 g/dl (32.0-35.9); MEAN CELL VOLUME 88.5 fl (80-96); MEAN PLT VOLUME 8.9 fl (7.5-11.1); PLATELET COUNT 102 10^3/uL (134-434); RBC 2.62 M/mm3 (4.00-5.60); RDW 16.8 % (11.9-15.9); WHITE BLOOD COUNT 9.2 K/mm3 (4.0-10.0)
[2021-06-28] MEDS ORDERED: ALPRAZolam 0.25 MG TABLET PO ONE (12:22)
[2021-06-29 09:02] LABS: HEMATOCRIT 22.5 % (35.4-49); HEMOGLOBIN 7.8 GM/dL (11.7-16.9); MCH 30.6 pg (25.7-33.7); MCHC 34.6 g/dl (32.0-35.9); MEAN CELL VOLUME 88.5 fl (80-96); MEAN PLT VOLUME 8.9 fl (7.5-11.1); PLATELET COUNT 112 10^3/uL (134-434); RBC 2.54 M/mm3 (4.00-5.60); RDW 17.2 % (11.9-15.9); WHITE BLOOD COUNT 9.2 K/mm3 (4.0-10.0)
[2021-06-29 09:14] LABS: CALCIUM 7.9 mg/dL (8.5-10.1)
[2021-06-29 09:15] LABS: ALBUMIN 1.8 g/dl (3.4-5.0); BLOOD UREA NITROGEN 17.2 mg/dL (7-18); MAGNESIUM 1.9 mg/dL (1.8-2.4)
[2021-06-29 09:18] LABS: CREATININE 0.5 mg/dL (0.55-1.3)
[2021-06-29 09:19] LABS: BILIRUBIN,TOTAL 0.5 mg/dL (0.2-1); TOT PROT 5.2 g/dl (6.4-8.2)
[2021-06-29 10:05] LABS: ANISOCYTOSIS 0; HELMET CELLS 0; HOWELL-JOLLY BODIES 0; MACROCYTOSIS 0; OVALOCYTE 0; PLATELET ESTIMATE DECREASED; ROULEAU 0; SICKELED CELLS 0; TARGET CELLS 0; TEAR DROP CELLS 0; TOXIC GRANULATION 0
[2021-06-29] MEDS: ENOXAPARIN NA (PORCINE) 40 MG/0.4 ML DISP.SYRIN SQ SCH (11:56)
[2021-06-29] MEDS: BUDESONIDE/FORMETEROL FUMARATE 80/4.5 mcg INHALER IH SCH ×2 (11:56→21:44)
[2021-06-29] MEDS: AMINO ACIDS/PROTEIN HYDROLYS 30 ML LIQUID.PKT PO SCH ×2 (11:57→17:30)
[2021-06-29] MEDS: ALPRAZolam 0.25 MG TABLET PO PRN (19:16)
[2021-06-30 09:25] LABS: HEMATOCRIT 24.7 % (35.4-49); HEMOGLOBIN 8.3 GM/dL (11.7-16.9); MCH 30.1 pg (25.7-33.7); MCHC 33.5 g/dl (32.0-35.9); MEAN CELL VOLUME 89.7 fl (80-96); MEAN PLT VOLUME 8.8 fl (7.5-11.1); PLATELET COUNT 143 10^3/uL (134-434); RBC 2.75 M/mm3 (4.00-5.60); RDW 17.1 % (11.9-15.9); WHITE BLOOD COUNT 7.8 K/mm3 (4.0-10.0)
[2021-06-30] MEDS: BUDESONIDE/FORMETEROL FUMARATE 80/4.5 mcg INHALER IH SCH ×2 (09:28→21:34)
[2021-06-30] MEDS: AMINO ACIDS/PROTEIN HYDROLYS 30 ML LIQUID.PKT PO SCH ×2 (09:28→18:18)
[2021-06-30] MEDS: ENOXAPARIN NA (PORCINE) 40 MG/0.4 ML DISP.SYRIN SQ SCH (09:28)
[2021-06-30 09:33] LABS: ALBUMIN 1.9 g/dl (3.4-5.0); BLOOD UREA NITROGEN 16.6 mg/dL (7-18); CALCIUM 8.3 mg/dL (8.5-10.1)
[2021-06-30 09:36] LABS: CREATININE 0.5 mg/dL (0.55-1.3); PHOSPHOROUS 2.8 mg/dL (2.5-4.9)
[2021-06-30 09:37] LABS: BILIRUBIN,TOTAL 0.6 mg/dL (0.2-1)
[2021-06-30 09:38] LABS: TOT PROT 5.4 g/dl (6.4-8.2)
[2021-06-30 09:49] LABS: ANISOCYTOSIS 0; HELMET CELLS 0; HOWELL-JOLLY BODIES 0; MACROCYTOSIS 0; OVALOCYTE 0; PLATELET ESTIMATE DECREASED; ROULEAU 0; SICKELED CELLS 0; TARGET CELLS 0; TEAR DROP CELLS 0; TOXIC GRANULATION 0
[2021-07-01] MEDS: ALPRAZolam 0.25 MG TABLET PO PRN (00:57)
[2021-07-01] MEDS: AMINO ACIDS/PROTEIN HYDROLYS 30 ML LIQUID.PKT PO SCH (09:40)
[2021-07-01] MEDS: ENOXAPARIN NA (PORCINE) 40 MG/0.4 ML DISP.SYRIN SQ SCH (09:40)
[2021-07-01] MEDS: BUDESONIDE/FORMETEROL FUMARATE 80/4.5 mcg INHALER IH SCH (09:41)
[2021-07-01 11:25] VITALS: BP 116/70; PULSE 82; TEMP 97.7
== END 2021-07-01 13:18 | DRG 480 ==
LOC: JER 17:21 → JERBED 20:59 → J5S 06-25 02:25
PROVIDERS: ADMIT Internal Medicine
PROC: 0QS606Z Reposition Right Upper Femur with Intramedullary Internal Fixation Device, Open Approach (ICD-10-PCS; principal; 2021-06-26 12:00)
DX: S72.141A Displaced intertrochanteric fracture of right femur, initial encounter for closed fracture (principal); E43 Unspecified severe protein-calorie malnutrition; Z68.1 Body mass index [BMI] 19.9 or less, adult; C34.90 Malignant neoplasm of unspecified part of unspecified bronchus or lung; R64 Cachexia; J44.0 Chronic obstructive pulmonary disease with (acute) lower respiratory infection; C79.9 Secondary malignant neoplasm of unspecified site; R62.7 Adult failure to thrive; F41.8 Other specified anxiety disorders; I10 Essential (primary) hypertension; D63.8 Anemia in other chronic diseases classified elsewhere; E78.5 Hyperlipidemia, unspecified; W18.30XA Fall on same level, unspecified, initial encounter; Z86.73 Personal history of transient ischemic attack (TIA), and cerebral infarction without residual deficits; Y92.098 Other place in other non-institutional residence as the place of occurrence of the external cause
CPT/HCPCS: 36415; 70450-TC; 71045-TC-FY; 72125-TC; 73070-TC-RT-FY; 73523-TC-FY; 73552-TC-RT-FY; 76000-TC-FY; 80048; 80053; 81003; 82272; 82728; 83540; 83550; 83735; 84100; 84484; 85025; 85027; 85610; 85730; 86850; 86900; 86901; 90715; 93005; 93010; 94010; 94760; 97116-GP; 97162-GP; 99285-25; C9803; J0131; U0003; U0005

== ENCOUNTER 2021-09-17 11:35 | Inpatient (IN) | payer OTHER, BC ==
[2021-09-17 13:02] LABS: VENOUS BASE EXCESS 4.1 mmol/L (-2-2); VENOUS O2 SATURATION 38.1 % (70-80); VENOUS PCO2 50.9 mmHg (38-52); VENOUS PH 7.387 (7.310-7.410)
[2021-09-17 13:06] LABS: BASO % 0.8 % (0-2.0); EOS % 1.2 % (0-4.5); HEMATOCRIT 31.2 % (35.4-49); HEMOGLOBIN 10.3 GM/dL (11.7-16.9); LYMPH % 5.3 % (8-40); MCHC 33.1 g/dl (32.0-35.9); MEAN CELL VOLUME 90.8 fl (80-96); MEAN PLT VOLUME 8.1 fl (7.5-11.1); MONO % 9.4 % (3.8-10.2); NEUT % 83.3 % (42.8-82.8); PLATELET COUNT 204 10^3/uL (134-434); RBC 3.43 M/mm3 (4.00-5.60); RDW 17.7 % (11.9-15.9)
[2021-09-17 13:21] LABS: CHLORIDE 106 mmol/L (98-107); SODIUM 142 mmol/L (136-145)
[2021-09-17 13:24] LABS: ALBUMIN 2.5 g/dl (3.4-5.0); ANION GAP 6 MMOL/L (8-16); BLOOD UREA NITROGEN 15.2 mg/dL (7-18); CALCIUM 9.2 mg/dL (8.5-10.1); CO2 31 mmol/L (21-32); GLUCOSE,RANDOM 102 mg/dL (74-106); MAGNESIUM 2.2 mg/dL (1.8-2.4)
[2021-09-17 13:27] LABS: CREATININE 0.7 mg/dL (0.55-1.3); SGOT/AST 21 U/L (15-37); SGPT/ALT 15 U/L (13-61)
[2021-09-17 13:29] LABS: BILIRUBIN,TOTAL 0.3 mg/dL (0.2-1); TOT PROT 6.8 g/dl (6.4-8.2)
[2021-09-17 13:30] LABS: ALK PHOS 78 U/L (45-117)
[2021-09-17] MEDS ORDERED: ALBUTEROL SO4 HFA INHALER IH PRN (18:50)
[2021-09-18] MEDS ORDERED: ENOXAPARIN NA (PORCINE) 30 MG/0.3 ML DISP.SYRIN SQ ONE (09:01)
[2021-09-18] MEDS ORDERED: CLOPIDOGREL BISULFATE 75 MG TABLET (FP) ONE (09:01)
[2021-09-18] MEDS: ENOXAPARIN NA (PORCINE) 30 MG/0.3 ML DISP.SYRIN SQ SCH (10:00)
[2021-09-18] MEDS: BUDESONIDE/FORMETEROL FUMARATE 160/4.5 mcg INHALER IH SCH ×2 (10:00→22:03)
[2021-09-18] MEDS: CLOPIDOGREL BISULFATE 75 MG TABLET (FP) PO SCH (10:00)
[2021-09-18 10:12] LABS: HEMATOCRIT 32.3 % (35.4-49); HEMOGLOBIN 10.9 GM/dL (11.7-16.9); MCH 30.6 pg (25.7-33.7); MCHC 33.7 g/dl (32.0-35.9); MEAN CELL VOLUME 90.8 fl (80-96); MEAN PLT VOLUME 8.5 fl (7.5-11.1); PLATELET COUNT 218 10^3/uL (134-434); RBC 3.56 M/mm3 (4.00-5.60); RDW 17.6 % (11.9-15.9); WHITE BLOOD COUNT 6.2 K/mm3 (4.0-10.0)
[2021-09-18 10:36] LABS: BLOOD UREA NITROGEN 11.2 mg/dL (7-18); CALCIUM 8.7 mg/dL (8.5-10.1); MAGNESIUM 2.1 mg/dL (1.8-2.4)
[2021-09-18 10:40] LABS: CREATININE 0.6 mg/dL (0.55-1.3); PHOSPHOROUS 3.4 mg/dL (2.5-4.9)
[2021-09-19 08:34] LABS: BASO % 0.6 % (0-2.0); EOS % 2.8 % (0-4.5); HEMATOCRIT 33.4 % (35.4-49); HEMOGLOBIN 11.1 GM/dL (11.7-16.9); LYMPH % 4.2 % (8-40); MCH 30.4 pg (25.7-33.7); MCHC 33.2 g/dl (32.0-35.9); MEAN CELL VOLUME 91.7 fl (80-96); MEAN PLT VOLUME 8.7 fl (7.5-11.1); MONO % 9.5 % (3.8-10.2); NEUT % 82.9 % (42.8-82.8); PLATELET COUNT 232 10^3/uL (134-434); RBC 3.65 M/mm3 (4.00-5.60); RDW 17.4 % (11.9-15.9); WHITE BLOOD COUNT 6.1 K/mm3 (4.0-10.0)
[2021-09-19 08:55] LABS: CALCIUM 9.1 mg/dL (8.5-10.1)
[2021-09-19 08:56] LABS: BLOOD UREA NITROGEN 15.8 mg/dL (7-18)
[2021-09-19 08:59] LABS: CREATININE 0.6 mg/dL (0.55-1.3)
[2021-09-19] MEDS ORDERED: CLOPIDOGREL BISULFATE 75 MG TABLET (FP) ONE (09:20)
[2021-09-19] MEDS ORDERED: ENOXAPARIN NA (PORCINE) 30 MG/0.3 ML DISP.SYRIN SQ ONE (09:21)
[2021-09-19] MEDS: CLOPIDOGREL BISULFATE 75 MG TABLET (FP) PO SCH (11:00)
[2021-09-19] MEDS: ENOXAPARIN NA (PORCINE) 30 MG/0.3 ML DISP.SYRIN SQ SCH (11:00)
[2021-09-19] MEDS: BUDESONIDE/FORMETEROL FUMARATE 160/4.5 mcg INHALER IH SCH ×2 (11:00→22:07)
[2021-09-19] MEDS: predniSONE 20 MG TABLET (UD) PO SCH (15:00)
[2021-09-19] MEDS ORDERED: predniSONE 20 MG TABLET (UD) ONE (17:50)
[2021-09-20 08:37] LABS: HEMATOCRIT 32.4 % (35.4-49); HEMOGLOBIN 10.8 GM/dL (11.7-16.9); MCH 30.5 pg (25.7-33.7); MCHC 33.4 g/dl (32.0-35.9); MEAN CELL VOLUME 91.1 fl (80-96); MEAN PLT VOLUME 8.8 fl (7.5-11.1); PLATELET COUNT 231 10^3/uL (134-434); RBC 3.56 M/mm3 (4.00-5.60); RDW 17.6 % (11.9-15.9); WHITE BLOOD COUNT 3.4 K/mm3 (4.0-10.0)
[2021-09-20 08:38] LABS: CALCIUM 8.8 mg/dL (8.5-10.1)
[2021-09-20 08:39] LABS: ALBUMIN 2.3 g/dl (3.4-5.0); BLOOD UREA NITROGEN 18.4 mg/dL (7-18)
[2021-09-20 08:42] LABS: CREATININE 0.5 mg/dL (0.55-1.3)
[2021-09-20 08:43] LABS: TOT PROT 6.6 g/dl (6.4-8.2)
[2021-09-20 08:44] LABS: BILIRUBIN,TOTAL 0.3 mg/dL (0.2-1)
[2021-09-20] MEDS: predniSONE 20 MG TABLET (UD) PO SCH (09:27)
[2021-09-20] MEDS: ENOXAPARIN NA (PORCINE) 30 MG/0.3 ML DISP.SYRIN SQ SCH (09:27)
[2021-09-20] MEDS: CLOPIDOGREL BISULFATE 75 MG TABLET (FP) PO SCH (09:27)
[2021-09-20] MEDS: BUDESONIDE/FORMETEROL FUMARATE 160/4.5 mcg INHALER IH SCH ×2 (09:32→21:41)
[2021-09-20] MEDS: NYSTATIN 500,000 UNITS/5 ML SUSPENSION PO SCH ×2 (13:01→18:00)
[2021-09-20 14:51] VITALS: BMI 13.4
[2021-09-20] MEDS: ALPRAZolam 0.25 MG TABLET PO PRN (21:41)
[2021-09-21] MEDS: NYSTATIN 500,000 UNITS/5 ML SUSPENSION PO SCH ×5 (00:05→23:23)
[2021-09-21 08:11] LABS: HEMATOCRIT 29.9 % (35.4-49); HEMOGLOBIN 9.9 GM/dL (11.7-16.9); MCH 30.4 pg (25.7-33.7); MCHC 33.1 g/dl (32.0-35.9); MEAN CELL VOLUME 91.8 fl (80-96); MEAN PLT VOLUME 8.8 fl (7.5-11.1); PLATELET COUNT 222 10^3/uL (134-434); RBC 3.26 M/mm3 (4.00-5.60); RDW 17.2 % (11.9-15.9); WHITE BLOOD COUNT 3.9 K/mm3 (4.0-10.0)
[2021-09-21 08:46] LABS: BLOOD UREA NITROGEN 21.7 mg/dL (7-18); CALCIUM 9.1 mg/dL (8.5-10.1)
[2021-09-21 08:49] LABS: CREATININE 0.5 mg/dL (0.55-1.3)
[2021-09-21] MEDS: CLOPIDOGREL BISULFATE 75 MG TABLET (FP) PO SCH (09:55)
[2021-09-21] MEDS: ENOXAPARIN NA (PORCINE) 30 MG/0.3 ML DISP.SYRIN SQ SCH (09:55)
[2021-09-21] MEDS: BUDESONIDE/FORMETEROL FUMARATE 160/4.5 mcg INHALER IH SCH ×2 (09:55→22:05)
[2021-09-21] MEDS: predniSONE 20 MG TABLET (UD) PO SCH (09:55)
[2021-09-21] MEDS: ALPRAZolam 0.25 MG TABLET PO PRN (23:12)
[2021-09-22] MEDS: NYSTATIN 500,000 UNITS/5 ML SUSPENSION PO SCH ×3 (06:05→17:13)
[2021-09-22 07:45] LABS: HEMATOCRIT 29.2 % (35.4-49); HEMOGLOBIN 9.6 GM/dL (11.7-16.9); MCH 29.8 pg (25.7-33.7); MCHC 32.8 g/dl (32.0-35.9); MEAN CELL VOLUME 90.9 fl (80-96); MEAN PLT VOLUME 8.6 fl (7.5-11.1); PLATELET COUNT 213 10^3/uL (134-434); RBC 3.21 M/mm3 (4.00-5.60); RDW 17.7 % (11.9-15.9); WHITE BLOOD COUNT 4.7 K/mm3 (4.0-10.0)
[2021-09-22 08:10] LABS: CALCIUM 9.1 mg/dL (8.5-10.1)
[2021-09-22 08:11] LABS: BLOOD UREA NITROGEN 24.1 mg/dL (7-18)
[2021-09-22 08:14] LABS: CREATININE 0.6 mg/dL (0.55-1.3)
[2021-09-22] MEDS ORDERED: ALPRAZolam 0.25 MG TABLET PO PRN (08:24)
[2021-09-22] MEDS: ENOXAPARIN NA (PORCINE) 30 MG/0.3 ML DISP.SYRIN SQ SCH (10:00)
[2021-09-22] MEDS: BUDESONIDE/FORMETEROL FUMARATE 160/4.5 mcg INHALER IH SCH ×2 (10:00→21:38)
[2021-09-22] MEDS: CLOPIDOGREL BISULFATE 75 MG TABLET (FP) PO SCH (10:00)
[2021-09-22] MEDS: predniSONE 20 MG TABLET (UD) PO SCH (10:00)
[2021-09-23] MEDS: NYSTATIN 500,000 UNITS/5 ML SUSPENSION PO SCH ×4 (01:09→18:09)
[2021-09-23 07:42] LABS: HEMATOCRIT 29.2 % (35.4-49); HEMOGLOBIN 9.8 GM/dL (11.7-16.9); MCHC 33.5 g/dl (32.0-35.9); MEAN CELL VOLUME 89.7 fl (80-96); MEAN PLT VOLUME 8.5 fl (7.5-11.1); PLATELET COUNT 217 10^3/uL (134-434); RBC 3.25 M/mm3 (4.00-5.60); RDW 17.1 % (11.9-15.9); WHITE BLOOD COUNT 4.7 K/mm3 (4.0-10.0)
[2021-09-23 08:04] LABS: CALCIUM 8.9 mg/dL (8.5-10.1)
[2021-09-23 08:05] LABS: BLOOD UREA NITROGEN 20.5 mg/dL (7-18)
[2021-09-23 08:08] LABS: CREATININE 0.5 mg/dL (0.55-1.3)
[2021-09-23] MEDS: CLOPIDOGREL BISULFATE 75 MG TABLET (FP) PO SCH (09:03)
[2021-09-23] MEDS: predniSONE 10 MG TABLET (UD) PO SCH (09:03)
[2021-09-23] MEDS: ENOXAPARIN NA (PORCINE) 30 MG/0.3 ML DISP.SYRIN SQ SCH (09:04)
[2021-09-23] MEDS: BUDESONIDE/FORMETEROL FUMARATE 160/4.5 mcg INHALER IH SCH ×2 (09:06→23:17)
[2021-09-24] MEDS: NYSTATIN 500,000 UNITS/5 ML SUSPENSION PO SCH ×4 (00:05→17:10)
[2021-09-24 07:05] LABS: HEMATOCRIT 31.1 % (35.4-49); HEMOGLOBIN 10.5 GM/dL (11.7-16.9); MCH 30.5 pg (25.7-33.7); MCHC 33.6 g/dl (32.0-35.9); MEAN CELL VOLUME 90.8 fl (80-96); MEAN PLT VOLUME 8.6 fl (7.5-11.1); PLATELET COUNT 222 10^3/uL (134-434); RBC 3.43 M/mm3 (4.00-5.60); RDW 17.3 % (11.9-15.9); WHITE BLOOD COUNT 4.4 K/mm3 (4.0-10.0)
[2021-09-24 07:20] LABS: BLOOD UREA NITROGEN 19.2 mg/dL (7-18)
[2021-09-24 07:23] LABS: CREATININE 0.5 mg/dL (0.55-1.3)
[2021-09-24] MEDS: predniSONE 10 MG TABLET (UD) PO SCH (10:18)
[2021-09-24] MEDS: CLOPIDOGREL BISULFATE 75 MG TABLET (FP) PO SCH (10:18)
[2021-09-24] MEDS: ENOXAPARIN NA (PORCINE) 30 MG/0.3 ML DISP.SYRIN SQ SCH (10:18)
[2021-09-24] MEDS: BUDESONIDE/FORMETEROL FUMARATE 160/4.5 mcg INHALER IH SCH ×2 (10:19→22:02)
[2021-09-25] MEDS: NYSTATIN 500,000 UNITS/5 ML SUSPENSION PO SCH ×4 (00:18→17:42)
[2021-09-25] MEDS: predniSONE 10 MG TABLET (UD) PO SCH (10:29)
[2021-09-25] MEDS: CLOPIDOGREL BISULFATE 75 MG TABLET (FP) PO SCH (10:29)
[2021-09-25] MEDS: BUDESONIDE/FORMETEROL FUMARATE 160/4.5 mcg INHALER IH SCH ×2 (10:29→21:10)
[2021-09-26] MEDS: NYSTATIN 500,000 UNITS/5 ML SUSPENSION PO SCH ×5 (01:05→23:30)
[2021-09-26] MEDS: BUDESONIDE/FORMETEROL FUMARATE 160/4.5 mcg INHALER IH SCH ×2 (09:26→21:39)
[2021-09-26] MEDS: CLOPIDOGREL BISULFATE 75 MG TABLET (FP) PO SCH (09:26)
[2021-09-26] MEDS: predniSONE 10 MG TABLET (UD) PO SCH (09:26)
[2021-09-26] MEDS: ALPRAZolam 0.25 MG TABLET PO PRN (14:08)
[2021-09-26] MEDS ORDERED: PT OWN MED DRAWER 7, Y5N ONE (17:16)
[2021-09-26] MEDS ORDERED: MELATONIN 1 MG TABLET PO ONE (20:58)
[2021-09-27] MEDS: NYSTATIN 500,000 UNITS/5 ML SUSPENSION PO SCH ×3 (06:18→18:28)
[2021-09-27] MEDS: CLOPIDOGREL BISULFATE 75 MG TABLET (FP) PO SCH (09:29)
[2021-09-27] MEDS: predniSONE 10 MG TABLET (UD) PO SCH (09:29)
[2021-09-27] MEDS: BUDESONIDE/FORMETEROL FUMARATE 160/4.5 mcg INHALER IH SCH ×2 (09:30→21:29)
[2021-09-27] MEDS: ALPRAZolam 0.25 MG TABLET PO PRN ×2 (12:01→21:33)
[2021-09-28] MEDS: NYSTATIN 500,000 UNITS/5 ML SUSPENSION PO SCH ×2 (00:17→05:55)
[2021-09-28 09:27] VITALS: BP 97/54; PULSE 88; TEMP 97.6
[2021-09-28] MEDS: predniSONE 10 MG TABLET (UD) PO SCH (09:27)
[2021-09-28] MEDS: BUDESONIDE/FORMETEROL FUMARATE 160/4.5 mcg INHALER IH SCH (09:27)
[2021-09-28] MEDS: CLOPIDOGREL BISULFATE 75 MG TABLET (FP) PO SCH (09:27)
== END 2021-09-28 15:49 | disposition home health service (06) | DRG 180 ==
LOC: JER 11:35 → JERBED 17:34 → UNDOADMOB 17:34 → INTOOBSV 17:34 → JERBED 18:46 → J4S 09-20 08:05 → OBSVTOIN 09-24 15:42
PROVIDERS: ADMIT Internal Medicine; ATTEND Internal Medicine
DX: C34.90 Malignant neoplasm of unspecified part of unspecified bronchus or lung (principal); E43 Unspecified severe protein-calorie malnutrition; C77.9 Secondary and unspecified malignant neoplasm of lymph node, unspecified; B37.0 Candidal stomatitis; Z68.1 Body mass index [BMI] 19.9 or less, adult; R64 Cachexia; F41.8 Other specified anxiety disorders; R09.02 Hypoxemia; I77.810 Thoracic aortic ectasia; H91.90 Unspecified hearing loss, unspecified ear; J43.9 Emphysema, unspecified; D64.9 Anemia, unspecified; Z85.828 Personal history of other malignant neoplasm of skin; Z86.73 Personal history of transient ischemic attack (TIA), and cerebral infarction without residual deficits
CPT/HCPCS: 36415; 71045-TC-FY; 71275-TC; 80048; 80053; 82550; 82803; 83735; 84100; 84484; 85025; 85027; 93005; 93010; 94761; 97116-GP; 97161-GP; 99285-25; C9803; G0378; U0003; U0005

== ENCOUNTER 2021-10-05 06:35 | Emergency (ER) | payer OTHER, BC ==
[2021-10-05 06:58] VITALS: TEMP 97.7; BMI 21.5
[2021-10-05 07:43] LABS: HEMATOCRIT 31.4 % (35.4-49); HEMOGLOBIN 10.4 GM/dL (11.7-16.9); MCH 29.8 pg (25.7-33.7); MCHC 33.2 g/dl (32.0-35.9); MEAN CELL VOLUME 89.9 fl (80-96); MEAN PLT VOLUME 7.9 fl (7.5-11.1); PLATELET COUNT 159 10^3/uL (134-434); RDW 18.1 % (11.9-15.9); WHITE BLOOD COUNT 13.4 K/mm3 (4.0-10.0)
[2021-10-05 07:56] LABS: INR 1.46 (0.83-1.09); PROTHROMBIN TIME (PATIENT) 17.2 SEC (9.7-13.0)
[2021-10-05 07:59] LABS: ACTIVATED PTT 25.7 SECONDS (25.2-36.5)
[2021-10-05 08:12] LABS: CHLORIDE 99 mmol/L (98-107); SODIUM 137 mmol/L (136-145)
[2021-10-05 08:14] LABS: ANION GAP 7 MMOL/L (8-16); BLOOD UREA NITROGEN 18.1 mg/dL (7-18); CALCIUM 8.9 mg/dL (8.5-10.1); CO2 31 mmol/L (21-32); GLUCOSE,RANDOM 104 mg/dL (74-106)
[2021-10-05 08:15] LABS: ALBUMIN 2.2 g/dl (3.4-5.0)
[2021-10-05 08:17] LABS: CREATININE 0.7 mg/dL (0.55-1.3); SGOT/AST 15 U/L (15-37)
[2021-10-05 08:18] LABS: SGPT/ALT 19 U/L (13-61)
[2021-10-05 08:19] LABS: BILIRUBIN,TOTAL 0.4 mg/dL (0.2-1); TOT PROT 6.4 g/dl (6.4-8.2)
[2021-10-05 08:20] LABS: ALK PHOS 73 U/L (45-117)
[2021-10-05 08:22] LABS: N-TERMINAL BNP 511.4 pg/ml (5-450)
[2021-10-05 17:26] VITALS: BP 124/74; PULSE 99
== END 2021-10-05 17:41 | disposition home or self-care (01) ==
LOC: JER 06:35
DX: J44.1 Chronic obstructive pulmonary disease with (acute) exacerbation (principal); C34.90 Malignant neoplasm of unspecified part of unspecified bronchus or lung; R06.02 Shortness of breath
CPT/HCPCS: 36415; 71045-TC-FY; 80053; 82550; 83605; 83880; 84484; 85027; 85610; 85730; 87804; 93005; 93010; 99285-25; C9803-CS; U0003; U0005